=== PATIENT | male | born 1950 | race Caucasian/White ===

== ENCOUNTER → 2020-09-09 | Outpatient (CLI) | payer MEDICARE ==
[~2020-09-09] MED LIST: ASPI81CH; ATOR40TA PO; Azor 10-20 MG1 EACH PO; BENAML10/2 PO; METF500C PO
== END ==
LOC: LAB 12:17 → LAB SHORT 12:17
DX: D48.5 Neoplasm of uncertain behavior of skin (principal); H61.001 Unspecified perichondritis of right external ear; D16.9 Benign neoplasm of bone and articular cartilage, unspecified; Z91.048 Other nonmedicinal substance allergy status
CPT/HCPCS: 88305

== ENCOUNTER → 2021-03-13 | Outpatient (CLI) | payer MEDICARE | END | disposition home or self-care (01) | LOC: LAB 09:30 → LAB SHORT 09:30 | DX: E11.9 Type 2 diabetes mellitus without complications (principal); Z98.890 Other specified postprocedural states | CPT/HCPCS: 82043 ==

== ENCOUNTER 2021-07-06 09:40 | Emergency (ER) | payer MEDICARE ==
[~2021-07-06] VITALS: Ht 195.6 cm; Wt 113.4 kg
[2021-07-06] MEDS ORDERED: CEPH500 PO (10:03)
== END 2021-07-06 10:46 | disposition home or self-care (01) ==
LOC: ER 09:40
DX: H60.12 Cellulitis of left external ear (principal); Z87.891 Personal history of nicotine dependence
CPT/HCPCS: 99283

== ENCOUNTER 2022-01-01 06:37 | Emergency (ER) | payer MEDICARE ==
[~2022-01-01] VITALS: Ht 195.6 cm; Wt 108.9 kg
[~2022-01-01 06:37] MED LIST changes: +CEPH500 PO
[2022-01-01] MEDS ORDERED: LOSA50 PO (07:23)
[2022-01-01] MEDS ORDERED: JANTOVEN5 M2 PO (07:24)
[2022-01-01] MEDS ORDERED: ATORVASTATIN CA20 MG PO (07:24)
[2022-01-01] MEDS ORDERED: CEPH500 PO (08:08)
[2022-01-01] MEDS ORDERED: CIPR750 PO (08:27)
== END 2022-01-01 08:44 | disposition home or self-care (01) ==
LOC: ER 06:37
DX: H60.12 Cellulitis of left external ear (principal); H61.002 Unspecified perichondritis of left external ear; Z88.8 Allergy status to other drugs, medicaments and biological substances; Z79.899 Other long term (current) drug therapy; Z79.01 Long term (current) use of anticoagulants; Z79.82 Long term (current) use of aspirin; Z79.84 Long term (current) use of oral hypoglycemic drugs; Z87.891 Personal history of nicotine dependence
CPT/HCPCS: 99282; A9270

== ENCOUNTER 2022-04-10 05:51 | Emergency (ER) | payer MEDICARE ==
[~2022-04-10] VITALS: Ht 195.6 cm; Wt 104.3 kg
[~2022-04-10 05:51] MED LIST changes: +ATORVASTATIN CA20 MG PO; +CIPR750 PO; +JANTOVEN5 M2 PO; +LOSA50 PO
[2022-04-10] MEDS ORDERED: CIPR750 PO (06:50)
== END 2022-04-10 06:55 | disposition home or self-care (01) ==
LOC: ER 05:51
DX: H61.001 Unspecified perichondritis of right external ear (principal); Z87.891 Personal history of nicotine dependence
CPT/HCPCS: A9270

== ENCOUNTER 2023-11-10 13:12 | Emergency (ER) | payer MEDICARE ==
[~2023-11-10] VITALS: Ht 195.6 cm; Wt 112.5 kg
[2023-11-10] MEDS ORDERED: Milk 150ML/Molasses 150ML (300ML Total) PR ONE (14:55)
[2023-11-10] MEDS ORDERED: Polyethylene Glycol 3350 17 gm PO ONE (14:55)
[2023-11-10] MEDS ORDERED: MIRALAX17 GM PO (16:52)
[2023-11-10] MEDS ORDERED: SENNA LAXATIVE8.6 MG PO (16:52)
[2023-11-10 17:07] VITALS: BP 144/76
== END 2023-11-10 17:06 | disposition home or self-care (01) ==
LOC: ER 13:12
DX: K59.00 Constipation, unspecified (principal); Z87.891 Personal history of nicotine dependence; Z79.01 Long term (current) use of anticoagulants; Z79.84 Long term (current) use of oral hypoglycemic drugs; Z79.82 Long term (current) use of aspirin; Z79.899 Other long term (current) drug therapy; Z88.8 Allergy status to other drugs, medicaments and biological substances
CPT/HCPCS: 74018; 99283-25; A9270

== ENCOUNTER 2023-12-19 02:29 | Emergency (ER) | payer MEDICARE ==
[~2023-12-19] VITALS: Ht 195.6 cm; Wt 108.9 kg
[~2023-12-19 02:29] MED LIST changes: +MIRALAX17 GM PO; +SENNA LAXATIVE8.6 MG PO
[2023-12-19 03:15] VITALS: BP 158/85
[2023-12-19] MEDS ORDERED: Amoxicillin/Clavulanate K 875 MG Tab PO ONE (03:15)
[2023-12-19] MEDS ORDERED: CIPR500 PO (03:19)
[2023-12-19] MEDS ORDERED: Ciprofloxacin 500 MG Tab PO ONE (03:20)
[2023-12-20] MEDS ORDERED: Aspir 8181 MG PO (13:45)
[2023-12-20] MEDS ORDERED: ATORVASTATIN CA20 MG PO (13:45)
[2023-12-20] MEDS ORDERED: METFORMIN HCL500 M2 PO (13:46)
[2023-12-20] MEDS ORDERED: EZET10 PO (13:46)
[2023-12-20] MEDS ORDERED: METOPROLOL TART25 MG PO (13:47)
[2023-12-20] MEDS ORDERED: JANTOVEN2 MG PO (13:48)
== END 2023-12-19 03:35 | disposition home or self-care (01) ==
LOC: ER 02:29
DX: H61.002 Unspecified perichondritis of left external ear (principal); E11.9 Type 2 diabetes mellitus without complications; I10 Essential (primary) hypertension; E78.00 Pure hypercholesterolemia, unspecified; I48.0 Paroxysmal atrial fibrillation; Z91.048 Other nonmedicinal substance allergy status; Z79.01 Long term (current) use of anticoagulants; Z79.82 Long term (current) use of aspirin; Z79.899 Other long term (current) drug therapy; Z87.891 Personal history of nicotine dependence
CPT/HCPCS: 99282; A9270

== ENCOUNTER 2023-12-21 06:33 | Day surgery (SDC) | payer MEDICARE ==
[2023-12-21] VITALS (16 sets, daily range): BP systolic 94–169; BP diastolic 39–88
[~2023-12-21] VITALS: Ht 195.6 cm; Wt 109.5 kg
[~2023-12-21 06:33] MED LIST changes: +Aspir 8181 MG PO; +CIPR500 PO; +EZET10 PO; +JANTOVEN2 MG PO; +Lactated Ringer's 1,000 ML IV SCH; +METFORMIN HCL500 M2 PO; +METOPROLOL TART25 MG PO
[2023-12-21] MEDS ORDERED: Cleocin HCl150 MG PO (07:04)
[2023-12-21] MEDS ORDERED: propofoL 40 ML IV ONE (07:12)
--- NOTE | 2023-12-21 07:29 | NUR ---
Ambulatory in Day Surgery. History, Chart, Medications and Allergies reviewed before start of procedure. Lungs clear T/O to Auscultation. Patient confirms NPO status and agrees with scheduled surgery. Pre-Op teaching done. Pt verbalizes understanding. Patient States Post-Procedure ride home has been arranged.
--- NOTE | 2023-12-21 07:37 | NUR ---
12/21/23 0737 Odette Fonseca CONFIRMED AND REVIEWED H&P, MEDCICATIONS, ALLERGIES, MEDICAL HISTORY, RESPIRATORY HISTORY, VITAL SIGNS, 3-LEAD EKG, CONSENTS, AND PHYSICIAN ORDERS. PATIENT CONFIRMS NPO STATUS AND AGREES WITH SCHEDULED PROCEDURE. MONITOR INTACT WITH CONTINUOUS PULSE OXIMETRY, CAPNOGRAPHY, 3-LEAD EKG, INTERMITTENT BP. SUPPLEMENTAL O2 TO BE TITRATED THROUGHOUT PROCEDURE TO MAINTAIN O2 SATURATION ABOVE 90%. PATIENT DETERMINED TO BE ASA APPROPRIATE FOR PROPOFOL SEDATION PRIOR TO START OF PROCEDURE BY DR. DOBBS.MALLAMPATI CLASS 2 AIRWAY: COMPLETE VISUALIZATION OF THE UVULA.
--- NOTE | 2023-12-21 08:11 | NUR ---
PT TO DAY SURGERY STEP DOWN FROM COLONOSCOPY; BEDSIDE REPORT RECEIVED. PT IS AWAKE, ALERT AND ORIENTED; ABLE TO MOVE SELF IN BED. VSS. PT DECLINES PO FLUIDS AT THIS TIME.
--- NOTE | 2023-12-21 08:22 | NUR ---
Discharge instructions reviewed with patient. Patient verbalizes understanding. Copy given to patient to take home. Patient States Post-Procedure ride home has been arranged.
--- NOTE | 2023-12-21 08:27 | NUR ---
Patient up to Ambulate independently. Gait steady.
--- NOTE | 2023-12-21 08:30 | NUR ---
Discharged via wheelchair to private car for ride home.
== END 2023-12-21 08:31 | disposition home or self-care (01) ==
LOC: ORSCMMR 06:33 → ORD 07:30 → ORSCMMR 07:30
PROVIDERS: Internal Medicine Gastroenterology
PROC: 0DBM8ZX Excision of Descending Colon, Via Natural or Artificial Opening Endoscopic, Diagnostic (ICD-10-PCS; principal; 2023-12-21 07:30)
DX: Z12.11 Encounter for screening for malignant neoplasm of colon (principal); Z86.0100 Personal history of colon polyps, unspecified; D12.4 Benign neoplasm of descending colon; E11.9 Type 2 diabetes mellitus without complications; I10 Essential (primary) hypertension; E78.00 Pure hypercholesterolemia, unspecified; I48.0 Paroxysmal atrial fibrillation; Z79.01 Long term (current) use of anticoagulants; Z79.84 Long term (current) use of oral hypoglycemic drugs; Z79.82 Long term (current) use of aspirin; Z79.899 Other long term (current) drug therapy
CPT/HCPCS: 82947; 88305; J2704; J7120

== ENCOUNTER 2024-12-27 09:02 | Emergency (ER) | payer MEDICARE ==
[~2024-12-27] VITALS: Ht 195.6 cm; Wt 104.3 kg
[~2024-12-27 09:02] MED LIST changes: +Cleocin HCl150 MG PO; -Lactated Ringer's 1,000 ML IV SCH
[2024-12-27 09:39] VITALS: BP 166/95
[2024-12-27] MEDS ORDERED: CEPH500 PO (09:46)
== END 2024-12-27 09:52 | disposition home or self-care (01) ==
LOC: ER 09:02
DX: L03.213 Periorbital cellulitis (principal); I10 Essential (primary) hypertension; E11.9 Type 2 diabetes mellitus without complications; Z88.8 Allergy status to other drugs, medicaments and biological substances; Z79.82 Long term (current) use of aspirin; Z79.01 Long term (current) use of anticoagulants; Z79.2 Long term (current) use of antibiotics; Z87.891 Personal history of nicotine dependence
CPT/HCPCS: 99282